=== PATIENT | female | born 1955 | race Caucasian/White ===

== ENCOUNTER 2023-12-12 10:04 | Inpatient (IN) | payer MEDICARE ==
[2023-12-12] MEDS ORDERED: Sodium Chloride 0.9% 1,000 ML IV ONE (11:03)
[2023-12-12 11:16] LABS: BASOPHILS ABSOLUTE AUTO 0.04 K/uL (0.00-0.10); BASOPHILS PERCENT AUTO 0.2 % (0.1-1.3); EOSINOPHILS PERCENT AUTO 0.1 % (0.0-5.4); HEMATOCRIT 35.9 % (34.3-46.0); HEMOGLOBIN 12.2 g/dL (11.2-15.5); IMMATURE GRAN ABSOLUTE AUTO 0.11 K/uL (0.00-0.23); IMMATURE GRAN PERCENT AUTO 0.7 % (0.0-0.7); LYMPHOCYTES PERCENT AUTO 8.7 % (11.4-47.7); MEAN CORPUSCULAR HEMOGLOBIN 30.8 pg (31.6-35.5); MEAN CORPUSCULAR VOLUME 90.7 fL (81.4-99.0); MONOCYTES ABSOLUTE AUTO 1.52 K/uL (0.20-0.90); MONOCYTES PERCENT AUTO 9.4 % (3.3-12.6); NEUTROPHILS ABSOLUTE AUTO 13.03 K/uL (1.0-7.6); NEUTROPHILS PERCENT AUTO 80.9 % (40.0-78.1); PLATELET COUNT,PLT 403 K/uL (130-375); RED BLOOD CELL COUNT 3.96 M/uL (3.77-5.24); WHITE BLOOD CELL COUNT,WBC 16.1 K/uL (3.2-11.0)
[2023-12-12 11:19] LABS: BASE EXCESS VENOUS 2.3 mm/L; BICARBONATE,VENOUS 25.7 mmol/L; CARBOXYHEMOGLOBIN 2.3 % (0.0-1.6); METHEMOGLOBIN 0.9 %; O2 SATURATION VENOUS 77.1; OXYHEMOGLOBIN 74.6 %; PH,VENOUS 7.455 (7.350-7.450); PO2 VENOUS 42.2 mm/Hg; TOTAL HEMOGLOBIN 12.6 g/dL (12.0-16.0)
[2023-12-12 11:22] LABS: EOSINOPHILS ABSOLUTE AUTO 0.02 K/uL (0.00-0.40)
[2023-12-12] MEDS ORDERED: cefTRIAXone 1 GM in Sodium Chloride 0.9% 50 ML IV ONE (11:33)
[2023-12-12 11:44] LABS: A/G RATIO 0.4 (1.2-2.2); ALANINE AMINOTRANSFERASE,ALT 81 U/L (12-78); ALBUMIN 2.1 g/dL (3.4-5.0); ALKALINE PHOSPHATASE 124 U/L (46-116); ANION GAP 15.7 mmol/L (5.0-14.0); ASPARTATE AMNIOTRANSFERASE,AST 50 U/L (15-37); BILIRUBIN TOTAL 0.9 mg/dL (0.2-1.0); BLOOD UREA NITROGEN,BUN 14 mg/dL (7-18); CALCIUM 8.5 mg/dL (8.5-10.1); CARBON DIOXIDE,CO2 26 mmol/L (21-32); CHLORIDE,CL 101 mmol/L (100-108); CREATININE 0.7 mg/dL (0.6-1.0); EST CRCL DRUG DOSING (CG) 69.21 mL/min; ESTIMATED GFR 94 mL/min (>60); GLUCOSE RANDOM 150 mg/dL (74-106); POTASSIUM,K 3.7 mmol/L (3.6-5.2); PRO B-TYPE NATRIUR PEPT,BNPPRO 163 pg/mL (5-125); PROTEIN TOTAL,TP 7.4 g/dL (6.4-8.2); SODIUM,NA 139 mmol/L (140-148)
[2023-12-12 11:57] LABS: CORONAVIRUS COVID-19 NAA NEGATIVE (NEGATIVE); INFLUENZA A NAA NEGATIVE (NEGATIVE); INFLUENZA B NAA NEGATIVE (NEGATIVE); RESPIRATORY SYNCYTIAL VIR NAA NEGATIVE (NEGATIVE)
[2023-12-12 12:35] LABS: INR 9.5; PROTHROMBIN TIME 83.3 sec (9.2-10.6)
[2023-12-12] MEDS ORDERED: Phytonadione 5 MG Tab PO ONE (12:40)
[2023-12-12] MEDS ORDERED: Ondansetron 4 MG/2 ML SDV IV PRN (14:43)
[2023-12-12] MEDS ORDERED: Ondansetron 4 MG Tab.DIS PO PRN (14:43)
[2023-12-12] MEDS ORDERED: Albuterol 0.083% 2.5 MG/3 ML Neb Soln NEB PRN (14:43)
[2023-12-12] MEDS ORDERED: Magnesium Hydroxide 400 MG/5 ML Susp 30 ML Cup PO PRN (14:43)
[2023-12-12] MEDS ORDERED: Sennosides/Docusate Sodium 50-8.6 MG Tab PO PRN (14:43)
[2023-12-12] MEDS ORDERED: guaiFENesin/Dextromethorphan 100-10 MG/5 ML Soln 10 ML Cup PO PRN (14:43)
[2023-12-12] MEDS ORDERED: Melatonin 3 MG Tab PO PRN (14:43)
[2023-12-12] MEDS ORDERED: Benzonatate 100 MG Cap PO PRN (14:43)
[2023-12-12] MEDS: Acetaminophen 325 MG Tab PO PRN (15:02)
[2023-12-12] MEDS: Sodium Chloride 0.9% 1,000 ML IV SCH (15:04)
[2023-12-12] MEDS: Doxycycline 100 MG Cap PO SCH ×2 (15:33→20:46)
[2023-12-12] MEDS: Lactobacillus Rhamnosus GG (Probiotic) Cap PO SCH (20:46)
[2023-12-13 04:40] LABS: HEMATOCRIT 34.2 % (34.3-46.0); HEMOGLOBIN 11.3 g/dL (11.2-15.5); MEAN CORPUSCULAR HEMOGLOBIN 30.5 pg (31.6-35.5); MEAN CORPUSCULAR VOLUME 92.2 fL (81.4-99.0); RED BLOOD CELL COUNT 3.71 M/uL (3.77-5.24); WHITE BLOOD CELL COUNT,WBC 16.5 K/uL (3.2-11.0)
[2023-12-13 04:56] LABS: CALCIUM 8.2 mg/dL (8.5-10.1); CREATININE 0.7 mg/dL (0.6-1.0); EST CRCL DRUG DOSING (CG) 70.61 mL/min; POTASSIUM,K 4.8 mmol/L (3.6-5.2); PROTHROMBIN TIME 47.7 sec (9.2-10.6)
[2023-12-13 05:20] LABS: ANION GAP 11.8 mmol/L (5.0-14.0); INR 5.2
[2023-12-13] MEDS ORDERED: Phytonadione 5 MG Tab PO ONE (05:33)
[2023-12-13] MEDS: Sodium Chloride 0.9% 1,000 ML IV SCH (06:01)
[2023-12-13] MEDS: Acetaminophen 325 MG Tab PO PRN (07:24)
[2023-12-13] MEDS: Lactobacillus Rhamnosus GG (Probiotic) Cap PO SCH (09:40)
[2023-12-13] MEDS: Doxycycline 100 MG Cap PO SCH (09:40)
[2023-12-13] MEDS ORDERED: cefTRIAXone 1 GM in Sodium Chloride 0.9% 50 ML IV SCH (12:00)
== END 2023-12-13 13:07 | disposition home or self-care (01) | DRG 193 ==
LOC: JP.ED 10:04 → JP.MS 13:27 → MERGE 13:27
PROVIDERS: ADMIT Internal Medicine; ATTEND Internal Medicine
PROC: 4A033R1 Measurement of Arterial Saturation, Peripheral, Percutaneous Approach (ICD-10-PCS; principal; 2023-12-12)
DX: J18.9 Pneumonia, unspecified organism (principal); J96.01 Acute respiratory failure with hypoxia; F17.210 Nicotine dependence, cigarettes, uncomplicated; I95.9 Hypotension, unspecified; R79.1 Abnormal coagulation profile; D72.829 Elevated white blood cell count, unspecified; Z66 Do not resuscitate; Z79.899 Other long term (current) drug therapy; Z79.01 Long term (current) use of anticoagulants; Z11.52 Encounter for screening for COVID-19
CPT/HCPCS: 0241U; 36415; 71046; 80048; 80053; 82803; 83605; 83880; 84145; 84484; 85025; 85027; 85379; 85610; 87040; 87070; 87205; 93005; 93010; 96361; 96365; 99284; 99285; 99222; 99238; A9270-GY; J0696; J3490; J7030